=== PATIENT | female | born 1965 | race Two or more races ===

== ENCOUNTER 2019-11-11 23:35 | Inpatient (IN) | payer MEDICAID, OTHER ==
[~2019-11-11] VITALS: Ht 160 cm; Wt 72.1 kg
[2019-11-12 00:16] LABS: Basophils # (auto) 0 10 ^3/uL (0-0.2); Basophils % (auto) 0.5 % (0.0-2.0); Eosinophils # (auto) 0.1 10 ^3/uL (0-0.8); Eosinophils % (auto) 2.1 % (0.0-7.0); Hematocrit 38.3 % (36.0-46.0); Hemoglobin 12.8 g/dL (12.2-16.2); Lymphocytes # (auto) 1.5 10 ^3/uL (0.4-5.4); Lymphocytes % (auto) 43.6 % (10.0-50.0); Mean Corpuscular Hemoglobin 30.5 pg (28.0-32.0); Mean Corpuscular Hgb Conc. 33.4 g/dL (32.0-36.0); Mean Corpuscular Volume 91.3 fL (80.0-100.0); Monocytes # (auto) 0.2 10 ^3/uL (0-1.3); Neutrophils # (auto) 1.6 10 ^3/uL (1.6-8.6); Neutrophils % (auto) 47.8 % (37.0-80.0); Nucleated Red Blood Cells % 0.1 %; Platelet Count (auto) 229 10^3/uL (140-450); Red Blood Cells 4.19 10^6/uL (4.0-5.20); Red Cell Distribution Width 13.6 % (11.8-14.3); White Blood Cell 3.4 10^3/uL (4.4-10.8)
[2019-11-12 00:32] LABS: Albumin 3.8 g/dL (3.4-5.0); Calcium 8.2 mg/dL (8.5-10.1); Potassium 3.3 mmol/L (3.5-5.1)
[2019-11-12 00:35] LABS: BUN/Creatinine Ratio 17.6
[2019-11-12 00:40] LABS: Bilirubin, Total 0.3 mg/dL (0.2-1.0); Total Protein 7.2 g/dL (6.4-8.2)
[2019-11-12 03:52] LABS: INR 1.03 (0.9-1.15); Partial Thromboplastin Time 27.3 sec (23.0-31.2)
[2019-11-12] MEDS ORDERED: ONDANSETRON HCL 4 MG/2 ML VIAL IV ONE (05:00)
[2019-11-12] MEDS ORDERED: MORPHINE SULFATE 4 MG/ML SYR/VIAL IV ONE (05:00)
[2019-11-12] MEDS ORDERED: TEMAZEPAM 15 MG CAP PO PRN (06:00)
[2019-11-12] MEDS ORDERED: ONDANSETRON HCL 4 MG/2 ML VIAL IV PRN (06:00)
[2019-11-12] MEDS ORDERED: ACETAMINOPHEN 325 MG TAB PO PRN (06:00)
[2019-11-12] MEDS ORDERED: MORPHINE SULF INJ 2 MG/ML SYRINGE 1ML IV PRN (06:00)
[2019-11-12] MEDS ORDERED: cloNIDine HCL 0.1 MG TAB PO PRN (06:00)
[2019-11-12] MEDS ORDERED: NITROGLYCERIN 0.4 MG SL TAB SL PRN (06:00)
--- NOTE | 2019-11-12 08:30 | NUR ---
Patient arrived, patient on tele monitor HR is sinus Shakir 48BPM, patient is asymptomatic, patient alert and oriented at this time x4, patient stated only history is HTN and IBS. Patient vitals WNL at this time (see vitals documentation), patient made comfortable. Patient has no c/o chest pain at this time.
--- NOTE | 2019-11-12 08:40 | NUR ---
no password, per patient she does not want a password. phone calls transferred to room only.
[2019-11-12 09:00] VITALS: BP 133/62
[2019-11-12] MEDS ORDERED: LISI-648 PO (09:21)
[2019-11-12] MEDS: ASPirin 81 mg TAB PO SCH (09:52)
[2019-11-12] MEDS: ENOXAPARIN SOD 40 MG/0.4 ML SYRINGE SC SCH (09:53)
[2019-11-12] MEDS: FAMOTIDINE 20 MG TAB PO SCH ×2 (09:53→21:33)
[2019-11-12] MEDS: LISINOPRIL 10 MG TAB PO SCH (09:53)
[2019-11-12 13:00] VITALS: BP 100/51
[2019-11-12 17:00] VITALS: BP 93/53
--- NOTE | 2019-11-12 17:23 | NUR ---
Patient reports headache, diaphoresis which happens intermittently, she stated she already told the ER doctor and the doctor knows, it happens suddenly then goes away. Happens a few times a day.
[2019-11-12] MEDS ORDERED: DICY20TA PO (17:25)
[2019-11-12] MEDS ORDERED: POLY33504 PO (17:25)
--- NOTE | 2019-11-12 17:27 | NUR ---
patient reported home meds. states her GI doctor said she has to take everyday. documented and resumed.
[2019-11-12] MEDS: POLYETHYLENE GLYCOL 17 GM PWDR PO SCH (17:53)
[2019-11-12] MEDS: DICYCLOMINE HCL 10 MG CAP PO SCH ×2 (17:53→21:33)
[2019-11-12 19:51] LABS: BUN/Creatinine Ratio 14.6; Calcium 8.1 mg/dL (8.5-10.1)
[2019-11-12 19:57] LABS: Basophils # (auto) 0 10 ^3/uL (0-0.2); Basophils % (auto) 0.4 % (0.0-2.0); Eosinophils # (auto) 0.1 10 ^3/uL (0-0.8); Eosinophils % (auto) 1.5 % (0.0-7.0); Hematocrit 38.5 % (36.0-46.0); Hemoglobin 12.8 g/dL (12.2-16.2); Lymphocytes # (auto) 1.3 10 ^3/uL (0.4-5.4); Mean Corpuscular Hemoglobin 30.5 pg (28.0-32.0); Mean Corpuscular Hgb Conc. 33.2 g/dL (32.0-36.0); Mean Corpuscular Volume 91.9 fL (80.0-100.0); Monocytes # (auto) 0.3 10 ^3/uL (0-1.3); Monocytes % (auto) 8.2 % (0.0-12.0); Neutrophils # (auto) 2.2 10 ^3/uL (1.6-8.6); Neutrophils % (auto) 56.9 % (37.0-80.0); Platelet Count (auto) 223 10^3/uL (140-450); Red Blood Cells 4.19 10^6/uL (4.0-5.20); Red Cell Distribution Width 13.5 % (11.8-14.3); White Blood Cell 3.9 10^3/uL (4.4-10.8)
--- NOTE | 2019-11-12 20:20 | NUR ---
Patient is Jehovahs witness. Pt brought in Advanced directive outlining her wish to not receive blood. Copies made and placed in chart.
[2019-11-12] MEDS: ATORVASTATIN 20 MG TAB PO SCH (21:33)
[2019-11-12 22:00] VITALS: BP 98/41
[2019-11-13 05:00] VITALS: BP 101/57
[2019-11-13] MEDS: DICYCLOMINE HCL 10 MG CAP PO SCH ×4 (05:30→22:22)
[2019-11-13 07:09] LABS: Basophils # (auto) 0 10 ^3/uL (0-0.2); Basophils % (auto) 0.8 % (0.0-2.0); Eosinophils # (auto) 0.1 10 ^3/uL (0-0.8); Eosinophils % (auto) 1.6 % (0.0-7.0); Hematocrit 42.9 % (36.0-46.0); Hemoglobin 14.1 g/dL (12.2-16.2); Lymphocytes # (auto) 1.2 10 ^3/uL (0.4-5.4); Lymphocytes % (auto) 34.2 % (10.0-50.0); Mean Corpuscular Hemoglobin 30.6 pg (28.0-32.0); Mean Corpuscular Hgb Conc. 32.9 g/dL (32.0-36.0); Mean Corpuscular Volume 93.2 fL (80.0-100.0); Monocytes # (auto) 0.2 10 ^3/uL (0-1.3); Monocytes % (auto) 6.4 % (0.0-12.0); Nucleated Red Blood Cells % 0.1 %; Platelet Count (auto) 232 10^3/uL (140-450); Red Blood Cells 4.61 10^6/uL (4.0-5.20); Red Cell Distribution Width 13.3 % (11.8-14.3); White Blood Cell 3.5 10^3/uL (4.4-10.8)
--- NOTE | 2019-11-13 07:30 | NUR ---
Opening Shift Note Assumed patient care from NOC RN. Patient currently sitting up in bed, no signs of distress at this time, respirations even and unlabored. Safety precautions in place, call light within reach, will continue to monitor.
[2019-11-13 07:31] LABS: BUN/Creatinine Ratio 18.2; Calcium 8.5 mg/dL (8.5-10.1)
[2019-11-13 09:00] VITALS: BP 102/63
--- NOTE | 2019-11-13 09:30 | NUR ---
at Bedside Dr. James at bedside discussing plan of care with patient. Per MD, page cardio again for possible discharge tomorrow.
[2019-11-13] MEDS: LISINOPRIL 10 MG TAB PO SCH ×2 (10:00→14:03)
[2019-11-13] MEDS: ASPirin 81 mg TAB PO SCH (10:09)
[2019-11-13] MEDS: FAMOTIDINE 20 MG TAB PO SCH ×2 (10:09→22:23)
[2019-11-13] MEDS: POLYETHYLENE GLYCOL 17 GM PWDR PO SCH (10:10)
[2019-11-13] MEDS: ENOXAPARIN SOD 40 MG/0.4 ML SYRINGE SC SCH (10:10)
--- NOTE | 2019-11-13 10:15 | NUR ---
Recalled Cardio Consult Cardiology consult recalled per Carmelina, community health advisor.
--- NOTE | 2019-11-13 12:12 | NUR ---
at Bedside Dr. Brown at bedside discussing plan of care with patient. Per MD, patient to follow up with cardiology as outpatient on discharge.
[2019-11-13 13:00] VITALS: BP 113/65
--- NOTE | 2019-11-13 14:40 | NUR ---
MD Called Received return call from Dr. James. MD notified of patient complaint of chest pain and 12 lead EKG results as well as decreased pain after nitroglycerin administration, MD also aware of patient been seen by Dr. Brown. No new orders at this time.
[2019-11-13 17:00] VITALS: BP 116/51
--- NOTE | 2019-11-13 19:30 | NUR ---
Opening shift note Assumed care of patient from day RNNiyah. Patient resting with eyes closed, respirations even and non-labored with no s/s of distress. Wrote POC on whiteboard, will discuss with patient upon waking. Bed in lowest locked position with 2 side rails up, call light within reach. Will continue to monitor Q1hr and PRN.
[2019-11-13] MEDS: ATORVASTATIN 20 MG TAB PO SCH (22:23)
[2019-11-13 23:06] VITALS: BP 100/32
[2019-11-14 05:21] VITALS: BP 114/45
[2019-11-14 06:12] LABS: Basophils # (auto) 0 10 ^3/uL (0-0.2); Basophils % (auto) 0.5 % (0.0-2.0); Eosinophils # (auto) 0 10 ^3/uL (0-0.8); Hematocrit 39.9 % (36.0-46.0); Hemoglobin 13.1 g/dL (12.2-16.2); Lymphocytes # (auto) 1.3 10 ^3/uL (0.4-5.4); Lymphocytes % (auto) 32.8 % (10.0-50.0); Mean Corpuscular Hemoglobin 30.3 pg (28.0-32.0); Mean Corpuscular Hgb Conc. 32.9 g/dL (32.0-36.0); Mean Corpuscular Volume 92.2 fL (80.0-100.0); Monocytes # (auto) 0.2 10 ^3/uL (0-1.3); Monocytes % (auto) 4.9 % (0.0-12.0); Neutrophils # (auto) 2.4 10 ^3/uL (1.6-8.6); Neutrophils % (auto) 60.8 % (37.0-80.0); Nucleated Red Blood Cells % 0.2 %; Platelet Count (auto) 224 10^3/uL (140-450); Red Blood Cells 4.32 10^6/uL (4.0-5.20); Red Cell Distribution Width 13.1 % (11.8-14.3); White Blood Cell 3.9 10^3/uL (4.4-10.8)
[2019-11-14] MEDS: DICYCLOMINE HCL 10 MG CAP PO SCH (06:37)
[2019-11-14 06:45] LABS: Potassium 4.3 mmol/L (3.5-5.1)
[2019-11-14 06:48] LABS: BUN/Creatinine Ratio 18.8; Calcium 8.6 mg/dL (8.5-10.1)
--- NOTE | 2019-11-14 07:30 | NUR ---
Opening Shift Note Assumed patient care from NOC RN, Mechelle. Patient currently sitting up in bed at this time, no signs of distress, respirations even and unlabored. Safety precautions in place, call light within reach, patient encouraged to call PRN, will continue to monitor.
[2019-11-14 08:00] VITALS: BP 111/59
--- NOTE | 2019-11-14 08:57 | NUR ---
Dizziness Patient reports episode of "light headedness" and feelings of fatigue. Patient states she feels slightly better but she feels nervous at this time. Orthostatic Vitals obtained: Supine: HR 55, BP 134/74, SpO2 100%, RR 18 on room air. Sitting: HR 58, BP 133/71, SpO2 100%, RR 20 on room air, states some mild light headedness but states "it went away fast" Standing: HR 58, BP 134/70, SpO2 100%, RR 20 on Room air. No signs of distress, denies chest pain at this time. Safety precautions in place, call light within reach, will continue to monitor.
[2019-11-14] MEDS: LISINOPRIL 10 MG TAB PO SCH (09:35)
[2019-11-14] MEDS: FAMOTIDINE 20 MG TAB PO SCH (09:35)
[2019-11-14] MEDS: ASPirin 81 mg TAB PO SCH (09:35)
[2019-11-14] MEDS: POLYETHYLENE GLYCOL 17 GM PWDR PO SCH (09:36)
[2019-11-14] MEDS: ENOXAPARIN SOD 40 MG/0.4 ML SYRINGE SC SCH (09:36)
[2019-11-14] MEDS ORDERED: ASPI81CH43 PO (10:11)
[2019-11-14] MEDS ORDERED: ATOR20TA50 PO (10:11)
--- NOTE | 2019-11-14 10:30 | NUR ---
at Station Dr. James at station, patient to be discharged today, follow up with PCP and cardiology in 2 weeks.
[2019-11-14 10:58] VITALS: BP 134/70
[2019-11-14 12:00] VITALS: BP 114/57
--- NOTE | 2019-11-14 13:01 | NUR ---
Discharge Packet Patient provided with additional education materials from Clinical Diet Manual. Patient including Calorie Controlled Diets, Modifications for GI Disorders, and Fat Controlled Diets. Patient verbalized understanding and stated "this will help me a lot."
--- NOTE | 2019-11-14 13:13 | NUR ---
Discharge Discharge instructions given as ordered. Encourage to follow up with PMD as instructed. All questions and concerns addressed. Patient verbalized understanding. Medication reconciliation form completed and copy given to patient. IV removed with catheter intact, pressure dressing applied. Telemetry unit returned to ICU. Patient ambulated to vehicle with all personal belongings, accompanied by staff. No distress noted at time of departure. Respirations even and unlabored, denies chest pain, shortness of breath, and dizziness at this time.
== END 2019-11-14 13:13 | disposition home or self-care (01) | DRG 190 ==
LOC: EDBD 23:35 → ER 23:41 → TELE 23:42 → TELE-WESTW 11-12 08:21
PROVIDERS: ADMIT Nurse Practitioner; ATTEND Internal Medicine Pulmonary Disease
DX: I21.4 Non-ST elevation (NSTEMI) myocardial infarction (principal); I10 Essential (primary) hypertension; I25.2 Old myocardial infarction
CPT/HCPCS: 36415; 71045; 80048; 80053; 84484; 85025; 85379; 85610; 85730; 93005; 93306; G0378; J2405

== ENCOUNTER 2019-11-17 21:30 | Emergency (ER) | payer MEDICAID ==
[~2019-11-17] VITALS: Ht 170.2 cm; Wt 72.6 kg
[~2019-11-17 21:30] MED LIST: ASPI81CH43 PO; ATOR20TA50 PO; DICY20TA PO; LISI-648 PO; POLY33504 PO
[2019-11-17 21:46] VITALS: BP 140/84
== END 2019-11-17 23:31 | disposition left against medical advice (07) ==
LOC: ER 21:30 → EDSEX 21:30 → EDBD 21:30 → ER 22:20
DX: R07.89 Other chest pain (principal); Z53.21 Procedure and treatment not carried out due to patient leaving prior to being seen by health care provider
CPT/HCPCS: 93005

== ENCOUNTER 2024-10-14 03:34 | Inpatient (IN) | payer MEDICAID ==
[2024-10-14] VITALS (10 sets, daily range): BP systolic 93–156; BP diastolic 45–77; PULSE 41–61; RESP 13–18; TEMP 96.9–98.3; O2SAT 97–100
[~2024-10-14] VITALS: Ht 160 cm; Wt 91.0 kg
[~2024-10-14 03:34] MED LIST changes: -LISI-648 PO; +LISI10TA34 PO
--- NOTE | 2024-10-14 04:37 | ED.PDOC ---
HPI Comments 59 year old female presents to the ED with a chief complaint of chest pain onset today (10/14/24). Patient states she was sleeping, woke up due to chest discomfort, felt like "heart was going to stop" and is skipping a beat. She is also experiencing shortness of breath, dizziness, chest discomfort, headache, bilateral leg cramping, experienced diarrhea 2 days ago. Patient experienced similar symptoms in 2020, had a cardiac catheter, was negative. Patient was also hospitalized at [facility] due to elevated Troponin levels. PMHx systolic dysfunction, HTN, thyroid cancer. Denies nausea, vomiting, diarrhea, abdominal pain, fever, chills, blurry vision, numbness/tingling, hematemesis, melena, headache. No other symptoms or modifying factors present at this time. Chief Complaint: Chest Pain Time Seen by MD: 03:50 Primary Care Provider: ARLENE Reviewed Notes: Medications, Allergies Allergies: Coded Allergies: NO KNOWN ALLERGIES (Unverified , 11/12/19) Home Meds Active Scripts Atorvastatin Calcium (ATORVASTATIN CALCIUM) 20 Mg Tab, 10 MG PO HS for 30 Days, #15 TAB Prov:DOUGLAS SNOW MD 11/14/19 Aspirin (Asa) 81 Mg Ch, 162 MG PO DAILY for 30 Days, #30 TAB.CHEW Prov:DOUGLAS SNOW MD 11/14/19 Reported Medications Polyethylene Glycol (MIRALAX 17GM PWD) 17 Gm Pw, 17 GRAMS PO DAILY, #527 GRAMS 11/12/19 Dicyclomine Hcl (Dicyclomine Hcl) 20 Mg Tab, 1 TAB PO QID for ibs 11/12/19 Lisinopril (Lisinopril) 10 Mg Tab, 10 MG PO DAILY for 30 Days, MG 11/12/19 Information Source: Patient Mode of Arrival: Ambulatory Severity: Moderate Timing: Hours Duration: Since onset Prehospital treatment: None Location: Chest (L) Radiation: No Radiation Quality: Sharp Onset: While Asleep Cardiac Risk Factors: HTN History of: None Associated Signs and Symptoms: SOB Vital Signs Vital Signs Date Time Temp Pulse Resp B/P (MAP) Pulse Ox O2 Delivery O2 Flow Rate FiO2 10/14/24 03:40 78 10/14/24 03:34 97.8 18 148/76 (100) 98 97.8 Physical Exam PHYSICAL EXAM: General: Awake, alert and oriented. No acute distress. Skin: Skin in warm, dry and intact. Appropriate color for ethnicity. HEENT: The head is normocephalic and atraumatic. Conjunctivae are clear without exudates or hemorrhage. Sclera is non-icteric. EOM are intact. No signs of nystagmus. Eyelids are normal in appearance without swelling or lesions. Oral mucosa is pink and moist Neck: The neck is supple with normal range of motion. No JVD. Cardiac: Heart rate and rhythm are normal. No murmurs, gallops, or rubs are auscultated. Respiratory: No signs of respiratory distress. Lung sounds are clear in all lobes bilaterally without rales, rhonchi, or wheezes. Abdominal: Abdomen is soft, non-tender without distention, guarding or rigidity. Bowel sounds are present and normoactive in all four quadrants. Extremities: Upper and lower extremities are atraumatic in appearance without deformity or edema. Neurological: The patient is awake, alert and oriented to person, place, and time with normal speech. Speech is clear. There is no facial asymmetry. Psychiatric: Appropriate mood and affect. Good judgement and insight. Review of Systems: REVIEW OF SYSTEMS: General: No fever, no chills, or fatigue HEENT: No sore throat, no earache, no congestion, no neck pain. Cardiac: No chest pain. No palpitations. Lungs: No shortness of breath, no cough. GI: No nausea, no vomiting, no diarrhea, no constipation, no abdominal pain : No dysuria, frequency, or urgency. No hematuria. Musculoskeletal: No joint pain , no joint swelling, no extremity edema. Skin: No rash, no itching. 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 Was a procedure done?: No CP Differential Dx Differential Diagnosis: A-fib, A-Flutter, Angina, Atrial Dysrhythmia, AV Block 1st Degree, AV Block 2nd Degree, AV Block 3rd Degree, Electrolyte Disorder, Heart Failure, Hyperthyroidism, Hyperventilation, [place], PVC's, Sinus Tachycardia, Other X-Ray, Labs, Meds, VS Vital Signs Date Time Temp Pulse Resp B/P (MAP) Pulse Ox O2 Delivery O2 Flow Rate FiO2 10/14/24 03:40 78 10/14/24 03:34 97.8 73 18 148/76 (100) 98 97.8 Lab Test 10/14/24 03:58 Range/Units White Blood Count 4.0 L 4.4-10.8 10^3/uL Red Blood Count 4.37 4.0-5.20 10^6/uL Hemoglobin 13.2 12.2-16.2 g/dL Hematocrit 39.3 36.0-46.0 % Mean Corpuscular Volume 89.8 80.0-100.0 fL Mean Corpuscular Hemoglobin 30.2 28.0-32.0 pg Mean Corpuscular Hemoglobin Concent 33.6 32.0-36.0 g/dL Red Cell Distribution Width 13.3 11.8-14.3 % Platelet Count 269 140-450 10^3/uL Mean Platelet Volume 7.9 6.9-10.8 fL Neutrophils (%) (Auto) 49.0 37.0-80.0 % Lymphocytes (%) (Auto) 40.4 10.0-50.0 % Monocytes (%) (Auto) 6.9 0.0-12.0 % Eosinophils (%) (Auto) 3.2 0.0-7.0 % Basophils (%) (Auto) 0.5 0.0-2.0 % Neutrophils # (Auto) 2.0 1.6-8.6 10 ^3/uL Lymphocytes # (Auto) 1.6 0.4-5.4 10 ^3/uL Monocytes # (Auto) 0.3 0-1.3 10 ^3/uL Eosinophils # (Auto) 0.1 0-0.8 10 ^3/uL Basophils # (Auto) 0 0-0.2 10 ^3/uL Nucleated Red Blood Cells 0.1 % Sodium Level 140 136-145 mmol/L Potassium Level 3.9 3.5-5.1 mmol/L Chloride Level 106 98-107 mmol/L Carbon Dioxide Level 26 20-31 mmol/L Anion Gap 8 5-15 Blood Urea Nitrogen 15 9-23 mg/dL Creatinine 0.96 0.550-1.02 mg/dL Glomerular Filtration Rate Calc 68 >90 mL/min BUN/Creatinine Ratio 15.6 10.0-20.0 Serum Glucose 116 H 74-106 mg/dL Calcium Level 9.1 8.7-10.4 mg/dL Troponin I High Sensitivity 46 *H </=34 ng/L B-Type Natriuretic Peptide 66.22 0-100 pg/mL Thyroid Stimulating Hormone (TSH) 1.29 0.55-4.78 uIU/mL Time of 1ST Reevaluation: 04:20 Reevaluation 1ST: Unchanged Patient Education/Counseling: Need For Follow Up Family Education/Counseling: No Family Present SEPSIS Sepsis Screen Date sepsis recognized/suspect: Oct 14, 2024 Time Sepsis recognized/suspect: 333 Recent Procedure: No On Antibiotic Therapy: No Respiratory Rate >20: No Heart Rate >90: No Temp<36 C (96.8 F) or >38.3 C: No SBP <90 or MAP <65 mmHG: No New Acute Mental Status Change: No Is the patient on CPAP, BIPAP,: No Physician Orders Electrocardigram (10/14/24 03:44) Electrocardigram (10/14/24 04:44) Electrocardigram (10/14/24 06:44) Chest Xray 1 View (10/14/24 04:25) Vital Signs Q1HR (10/14/24 04:25) Troponin-I Hs (10/14/24 05:25) Troponin-I Hs (10/14/24 07:25) Vital Signs Date Time Temp Pulse Resp B/P (MAP) Pulse Ox O2 Delivery O2 Flow Rate FiO2 10/14/24 03:40 78 10/14/24 03:34 97.8 73 18 148/76 (100) 98 97.8 Laboratory Tests Test 10/14/24 03:58 White Blood Count 4.0 10^3/uL (4.4-10.8) L Departure 1 Departure Time of Disposition: 05:16 Impression: Primary Impression: Palpitations Additional Impression: Elevated troponin Disposition: ADMITTED INPATIENT Comments Patient admitted to hospitalist service for further treatment, evaluation and monitoring. Extensive evaluation was performed in attempt to identify or rule out: (See differential diagnosis section) The following tests were ordered, and results were reviewed by me and discussed with patient: (See diagnostic results section) The following test were independently interpreted by me: EKG, CXR I reviewed and agreed with the following test results read by other providers: N/A I reviewed the following notes from the pt's past medical encounters: N/A Decision regarding hospitalization or escalation of hospital level of care: Risk and benefits of admission for further treatment of patient's condition was considered. Due to patient's current clinical condition, high risk of decline and poor outcome if discharged and need for further inpatient management and monitoring, patient will be admitted to the hospital. Critical Care Note Critical Care Time?: No Stability Stability form required: No I personally scribed for RICARDO GTZ MD ([email or web address]) on 10/14/24 at 04:37. Electronically submitted by Terrie Valle ([email or web address]). RICARDO GTZ MD Oct 14, 2024 04:37
[2024-10-14 04:40] LABS: Hematocrit 39.3 % (36.0-46.0); Hemoglobin 13.2 g/dL (12.2-16.2); Mean Corpuscular Hemoglobin 30.2 pg (28.0-32.0); Mean Corpuscular Volume 89.8 fL (80.0-100.0); Nucleated Red Blood Cells % 0.1 %
[2024-10-14 04:42] LABS: Chloride 106 mmol/L (98-107); Potassium 3.9 mmol/L (3.5-5.1); Sodium 140 mmol/L (136-145)
[2024-10-14 04:43] LABS: Anion Gap 8 (5-15); Calcium 9.1 mg/dL (8.7-10.4); Carbon Dioxide 26 mmol/L (20-31)
[2024-10-14 04:48] LABS: BUN/Creatinine Ratio 15.6 (10.0-20.0); Blood Urea Nitrogen 15 mg/dL (9-23)
[2024-10-14 04:55] LABS: Glucose 116 mg/dL (74-106)
--- NOTE | 2024-10-14 05:20 | DVH ---
CHEST RADIOGRAPH Indication: cp Technique: Single frontal view of the chest was obtained COMPARISON: None FINDINGS: Lines and Tubes: None Lungs: Clear Pleura: No effusion. No pneumothorax. Cardiomediastinal contours: Unremarkable Bones: Unremarkable IMPRESSION: 1. No acute disease.
--- NOTE | 2024-10-14 08:08 | DVHHP2 ---
History of Present Illness Reason for Visit: Palpitations History of Present Illness Laurie Call is a 59-year-old female with past medical history of thyroid cancer status post thyroidectomy, hypertension, ID, systolic dysfunction and left wrist surgery who presents to the ED with palpitations x 2 days. Patient reports that she has been having ongoing palpitations for the past several years but is started to get worse yesterday. She reports that she thought her heart was going to stop. She states that she 3 years ago she saw Dr. Brown also had an angio done. She states 7 months ago she was at [facility] and had a stress test and was told that everything was good. She reports that she is taking all of her medications. She denies any recent sick contacts, recent travels, recent ingestion of spoiled food, recent trauma or injury, chest pain, shortness of breath, fever, chills, lightheadedness, weakness, dizziness, abdominal pain, nausea, vomiting, or diarrhea. Cardiovascular: HTN, ID Past Medical History Thyroid cancer Systolic dysfunction Past Surgical History: Other (Thyroidectomy and left wrist surgery) Family History: None Smoke: No ALCOHOL: none Drugs: None Lives: Alone Domestic Violence: Neg Review of Systems Cardiovascular: Palpitations Allergies: Coded Allergies: NO KNOWN ALLERGIES (Unverified , 11/12/19) Exam Vital Signs Vital Signs Date Time Temp Pulse Resp B/P (MAP) Pulse Ox O2 Delivery O2 Flow Rate FiO2 10/14/24 06:05 61 18 97 Room Air* 0 21 10/14/24 06:05 98.1 161/68 (99) 98.1 General Appearance: Alert, Oriented X3, Cooperative, No acute distress HEENT: Atraumatic, PERRLA, EOMI, Mucous membr. moist/pink Respiratory: Clear to auscultation, Normal air movement Cardiovascular: Normal S1, Normal S2 Abdominal: Normal bowel sounds, Soft Extremities: No clubbing, No cyanosis, No edema, Normal pulses, No tenderness/swelling Skin: No significant lesion Neuro: Normal gait, Normal speech, Strength at 5/5 X4 ext, Normal tone, Sensation intact Psych/Mental Status: Mental status NL, Mood NL Labs/Xrays Labs Test 10/14/24 05:46 10/14/24 03:58 Range/Units Troponin I High Sensitivity 50 *H </=34 ng/L White Blood Count 4.0 L 4.4-10.8 10^3/uL Red Blood Count 4.37 4.0-5.20 10^6/uL Hemoglobin 13.2 12.2-16.2 g/dL Hematocrit 39.3 36.0-46.0 % Mean Corpuscular Volume 89.8 80.0-100.0 fL Mean Corpuscular Hemoglobin 30.2 28.0-32.0 pg Mean Corpuscular Hemoglobin Concent 33.6 32.0-36.0 g/dL Red Cell Distribution Width 13.3 11.8-14.3 % Platelet Count 269 140-450 10^3/uL Mean Platelet Volume 7.9 6.9-10.8 fL Neutrophils (%) (Auto) 49.0 37.0-80.0 % Lymphocytes (%) (Auto) 40.4 10.0-50.0 % Monocytes (%) (Auto) 6.9 0.0-12.0 % Eosinophils (%) (Auto) 3.2 0.0-7.0 % Basophils (%) (Auto) 0.5 0.0-2.0 % Neutrophils # (Auto) 2.0 1.6-8.6 10 ^3/uL Lymphocytes # (Auto) 1.6 0.4-5.4 10 ^3/uL Monocytes # (Auto) 0.3 0-1.3 10 ^3/uL Eosinophils # (Auto) 0.1 0-0.8 10 ^3/uL Basophils # (Auto) 0 0-0.2 10 ^3/uL Nucleated Red Blood Cells 0.1 % Sodium Level 140 136-145 mmol/L Potassium Level 3.9 3.5-5.1 mmol/L Chloride Level 106 98-107 mmol/L Carbon Dioxide Level 26 20-31 mmol/L Anion Gap 8 5-15 Blood Urea Nitrogen 15 9-23 mg/dL Creatinine 0.96 0.550-1.02 mg/dL Glomerular Filtration Rate Calc 68 >90 mL/min BUN/Creatinine Ratio 15.6 10.0-20.0 Serum Glucose 116 H 74-106 mg/dL Calcium Level 9.1 8.7-10.4 mg/dL B-Type Natriuretic Peptide 66.22 0-100 pg/mL Thyroid Stimulating Hormone (TSH) 1.29 0.55-4.78 uIU/mL CHEST RADIOGRAPH Indication: cp Technique: Single frontal view of the chest was obtained COMPARISON: None FINDINGS: Lines and Tubes: None Lungs: Clear Pleura: No effusion. No pneumothorax. Cardiomediastinal contours: Unremarkable Bones: Unremarkable IMPRESSION: 1. No acute disease. SEPSIS Sepsis Screen Date sepsis recognized/suspect: Oct 14, 2024 Time Sepsis recognized/suspect: 607 Recent Procedure: No On Antibiotic Therapy: No Respiratory Rate >20: No Heart Rate >90: No Temp<36 C (96.8 F) or >38.3 C: No SBP <90 or MAP <65 mmHG: No New Acute Mental Status Change: No Is the patient on CPAP, BIPAP,: No Physician Orders Electrocardigram (10/14/24 03:44) Electrocardigram (10/14/24 04:44) Electrocardigram (10/14/24 06:44) Chest Xray 1 View (10/14/24 04:25) Vital Signs Q1HR (10/14/24 04:25) Troponin-I Hs (10/14/24 07:25) Admit (10/14/24 08:01) Allergies (10/14/24 08:01) Code Status (10/14/24 08:01) Ondansetron Hcl (Zofran) (10/14/24 08:15) Complete Blood Count (10/15/24 04:00) Comprehensive Metabolic Panel (10/15/24 04:00) Cardiac Diet-2gna,Lofat,Lochol (10/14/24 Breakfast) Acetaminophen Tablet (Tylenol Tablet) (10/14/24 08:15) Sequential Compression Device (10/14/24 ) Nitroglycerin Sublingual (Ntrostat Subli (10/14/24 08:15) Morphine Sulfate Injection (10/14/24 08:15) Stat Ekg For Chest Pain (10/14/24 08:01) Notify Of Changes From Base (10/14/24 08:01) Floor Covering Printer For 24 Hours (10/14/24 08:01) Emergency Dysrhythmia Protocol (10/14/24 08:01) Rhythm Strips Once Every Shift (10/14/24 08:01) Oxygen By Nasal Cannula (10/14/24 08:01) * Cardiology Consult (10/14/24 08:02) Hemoglobin A1c (10/14/24 08:02) Thyroid Stimulating Hormone (10/14/24 08:02) Lipid Panel (10/14/24 08:02) Urinalysis (10/14/24 08:02) Drug Screen (10/14/24 08:02) Echo 2d Mode Cardiac Dop (10/14/24 08:02) Free T4 (Free Thyroxine) (10/14/24 08:02) Vital Signs Date Time Temp Pulse Resp B/P (MAP) Pulse Ox O2 Delivery O2 Flow Rate FiO2 10/14/24 06:05 61 18 97 Room Air* 0 21 10/14/24 06:05 98.1 61 18 161/68 (99) 97 98.1 10/14/24 03:40 78 10/14/24 03:34 97.8 73 18 148/76 (100) 98 97.8 Laboratory Tests Test 10/14/24 03:58 White Blood Count 4.0 10^3/uL (4.4-10.8) L Medications Medications Dose Ordered Sig/Ngozi Route Start Time Stop Time Status Last Admin Dose Admin Aspirin 324 mg ONCE ONCE PO 10/14/24 04:30 10/14/24 04:31 DC 10/14/24 04:30 324 MG Assessment/Plan Assessment/Plan Assessment Palpitations Obesity History of hypertension History of thyroid cancer status post thyroidectomy History of ID History of systolic dysfunction History of left wrist surgery Plan Admit to tele Aspirin + statin TSH Troponin pink to 50 Chest x-ray noted BNP EKG UA UDS Last echo on 11/12/2019 EF 60% Echo ordered Hemoglobin A1c Free T4 TSH Lipid panel Diet Home medications reconciled DVT prophylaxis-not indicated patient ambulating PUD prophylaxis-not indicated no history of GERD or GI bleed Discussed plan of care with patient and nurse Cardiology consult Counseled patient on lifestyle modifications, diet, and exercise [id number] Preventive counseling healthy eating habits, physical activity, and regular checkups Plan discussed with: Patient My Orders Orders - ADRIANA PONCE Procedure Category Date Status Time Admit ADMIT 10/14/24 Transmitted 08:01 Allergies SWAPNIL 10/14/24 In Process 08:01 Code Status CODE 10/14/24 Transmitted 08:01 Ondansetron Hcl PHA 10/14/24 Logged (Emile) 08:15 Complete Blood Count LAB 10/15/24 Verified 04:00 Comprehensive LAB 10/15/24 Verified Metabolic Panel 04:00 Cardiac DIET 10/14/24 Transmitted Diet-2gna,Lofat,Lochol Breakfast Acetaminophen Tablet [facility] 10/14/24 Logged (Tylenol Tablet) 08:15 Sequential [facility] 10/14/24 In Process Compression Device Nitroglycerin [facility] 10/14/24 Logged Sublingual (Ntrostat 08:15 Morphine Sulfate [facility] 10/14/24 Logged Injection 08:15 Stat Ekg For Chest [facility] 10/14/24 In Process Pain 08:01 Notify Of Changes [facility] 10/14/24 In Process From Base 08:01 Floor Covering Printer For [facility] 10/14/24 In Process 24 Hours 08:01 Emergency Dysrhythmia [facility] 10/14/24 In Process Protocol 08:01 Rhythm Strips Once [facility] 10/14/24 In Process Every Shift 08:01 Oxygen By Nasal RT 10/14/24 Transmitted Cannula 08:01 * Cardiology Consult CONS 10/14/24 Verified 08:02 Hemoglobin A1c LAB 10/14/24 Verified 08:02 Thyroid Stimulating LAB 10/14/24 Verified Hormone 08:02 Lipid Panel LAB 10/14/24 Verified 08:02 Urinalysis LAB 10/14/24 Verified 08:02 Drug Screen LAB 10/14/24 Verified 08:02 Echo 2d Mode Cardiac US 10/14/24 Verified DOP 08:02 Free T4 (Free LAB 10/14/24 Verified Thyroxine) 08:02 Date of Service: Oct 14, 2024 Billing Provider: ADRIANA PONCE Common Visit Codes: [id number] INP/OBS CARE (HIGH) Secondary Visit Codes: [id number] COUNSELING IND ADRIANA PONCE Oct 14, 2024 08:08
[2024-10-14] MEDS ORDERED: MORPHINE SULFATE INJ 2 MG/ml SYRG IV PRN (08:15)
[2024-10-14] MEDS ORDERED: ONDANSETRON HCL 4 MG/2 ML VIAL IV PRN (08:15)
[2024-10-14] MEDS ORDERED: NITROGLYCERIN 0.4 MG SL TAB SL PRN (08:15)
[2024-10-14 08:22] LABS: Triglycerides 68 mg/dL (< 150)
[2024-10-14 08:24] LABS: Cholesterol 177 mg/dL (< 200); HDL Cholesterol 45 mg/dL (40-59)
[2024-10-14 09:41] LABS: Urine Protein, UAD Negative (Negative)
--- NOTE | 2024-10-14 09:53 | DVHINCON2 ---
Date Seen: Oct 14, 2024 Referring Physician MICHELLE Ardon Reason for Consultation Palpitations History of Present Illness This is a 59-year-old female patient who presents to the emergency room with chief complaint of palpitations. The patient reports that the palpitations began at approximately 3:00 a.m. this morning upon awakening. Associated symptoms include dizziness. She denies any chest pain or shortness of breath. Initial twelve lead electrocardiogram reveals normal sinus rhythm without any significant ST segment changes. Initial troponin level of 46ng/L with flat trend thereafter. Significant past medical history includes hypertension, dyslipidemia, thyroid cancer status post thyroidectomy, and obesity. The patient reports that she underwent a coronary angiogram in 2020 in which no catheter based intervention was deemed necessary. She also reports a recent nuclear stress test at [facility] [place] in January 2024, which was negative per patient. The patient does not currently see a striper spray gun in the outpatient setting. Past Medical History Past medical history reviewed. No other significant than mentioned above. Past Surgical History Thyroidectomy in 2019 Tubal ligation Family History: Diabetes mellitus Family History Family history reviewed. Social History Denies the use of tobacco, alcohol or illicit drugs. Allergies: Coded Allergies: NO KNOWN ALLERGIES (Unverified , 11/12/19) Home Meds Active Scripts Atorvastatin Calcium (ATORVASTATIN CALCIUM) 20 Mg Tab, 10 MG PO HS for 30 Days, #15 TAB Prov:DOUGLAS SNOW MD 11/14/19 Aspirin (Asa) 81 Mg Ch, 162 MG PO DAILY for 30 Days, #30 TAB.CHEW Prov:DOUGLAS SNOW MD 11/14/19 Reported Medications Polyethylene Glycol (MIRALAX 17GM PWD) 17 Gm Pw, 17 GRAMS PO DAILY, #527 GRAMS 11/12/19 Dicyclomine Hcl (Dicyclomine Hcl) 20 Mg Tab, 1 TAB PO QID for ibs 11/12/19 Lisinopril (Lisinopril) 10 Mg Tab, 10 MG PO DAILY for 30 Days, MG 11/12/19 Home Meds Home medications reviewed. Current Medications Current Medications Medications (Trade) Dose Ordered Sig/Ngozi Route PRN Reason Start Time Stop Time Status Last Admin Ondansetron HCl (Zofran) 4 mg Q4HP PRN IV NAUSEA / VOMITING 10/14/24 08:15 Acetaminophen (Tylenol Tablet) 650 mg Q6HP PRN PO PAIN SCALE 1-3 OR TEMP>100.4 7/17/25 08:15 Nitroglycerin (Ntrostat Sublingual) 0.4 mg Q5MINP PRN SL FOR CHEST PAIN 10/14/24 08:15 Morphine Sulfate 2 mg Q30M PRN IV FOR CHEST PAIN 10/14/24 08:15 Review of Systems Constitutional: No symptom reported Ears, Nose, & Throat: No symptom reported Eyes: No symptom reported Neurological: No symptoms reported Pulmonary/Respiratory: No symptoms reported Cardiovascular: Palpitations Gastrointestinal: No symptom reported Genitourinary: No symptom reported Musculoskeletal: No symptom reported Skin: No symptom reported Psychiatric: No symptom reported Endocrine: No symptom reported Hematologic/Lymphatic: No symptom reported Vital Signs Vital Signs Date Time Temp Pulse Resp B/P (MAP) Pulse Ox O2 Delivery O2 Flow Rate FiO2 10/14/24 08:10 51 13 97 Room Air* 0 21 10/14/24 08:09 98.0 128/68 (88) 98.0 Physical Exam General Appearance: Cooperative. Well-developed. Well-nourished. No acute distress. Pulmonary/Respiratory: Clear, bilateral breaths sounds. Cardiovascular/Chest: Regular rate and rhythm. Peripheral Pulses: 2+ Radial (R). 2+ Radial (L). 2+ Pedal (R). 2+ Pedal (L) Abdominal Exam: Normal bowel sounds. Ankle Exam: Negative ankle edema Lower extremities: Negative lower extremity edema Neuro/Mental Status: A/OX4, coherent. Thoughts/Psych: Normal thought pattern. Appropriate mood and affect. Good judgment and insight. Appearance: No acute distress. Skin Exam: Normal inspection. Normal color. Warm and dry. Labs/Diagnostic Data Labs Test 10/14/24 09:00 10/14/24 08:23 10/14/24 05:46 10/14/24 03:58 Range/Units Troponin I High Sensitivity 50 *H </=34 ng/L Triglycerides Level 68 < 150 mg/dL Cholesterol Level 177 < 200 mg/dL LDL Cholesterol 127 H < 100 mg/dL HDL Cholesterol 45 40-59 mg/dL Thyroid Stimulating Hormone (TSH) 0.90 0.55-4.78 uIU/mL White Blood Count 4.0 L 4.4-10.8 10^3/uL Red Blood Count 4.37 4.0-5.20 10^6/uL Hemoglobin 13.2 12.2-16.2 g/dL Hematocrit 39.3 36.0-46.0 % Mean Corpuscular Volume 89.8 80.0-100.0 fL Mean Corpuscular Hemoglobin 30.2 28.0-32.0 pg Mean Corpuscular Hemoglobin Concent 33.6 32.0-36.0 g/dL Red Cell Distribution Width 13.3 11.8-14.3 % Platelet Count 269 140-450 10^3/uL Mean Platelet Volume 7.9 6.9-10.8 fL Neutrophils (%) (Auto) 49.0 37.0-80.0 % Lymphocytes (%) (Auto) 40.4 10.0-50.0 % Monocytes (%) (Auto) 6.9 0.0-12.0 % Eosinophils (%) (Auto) 3.2 0.0-7.0 % Basophils (%) (Auto) 0.5 0.0-2.0 % Neutrophils # (Auto) 2.0 1.6-8.6 10 ^3/uL Lymphocytes # (Auto) 1.6 0.4-5.4 10 ^3/uL Monocytes # (Auto) 0.3 0-1.3 10 ^3/uL Eosinophils # (Auto) 0.1 0-0.8 10 ^3/uL Basophils # (Auto) 0 0-0.2 10 ^3/uL Nucleated Red Blood Cells 0.1 % Sodium Level 140 136-145 mmol/L Potassium Level 3.9 3.5-5.1 mmol/L Chloride Level 106 98-107 mmol/L Carbon Dioxide Level 26 20-31 mmol/L Anion Gap 8 5-15 Blood Urea Nitrogen 15 9-23 mg/dL Creatinine 0.96 0.550-1.02 mg/dL Glomerular Filtration Rate Calc 68 >90 mL/min BUN/Creatinine Ratio 15.6 10.0-20.0 Serum Glucose 116 H 74-106 mg/dL Hemoglobin A1c 5.4 <5.7 % A1C Calcium Level 9.1 8.7-10.4 mg/dL B-Type Natriuretic Peptide 66.22 0-100 pg/mL Assessment Palpitations, rule out cardiac arrhythmia Rule out structural heart disease Hypertensive urgency NSTEMI, type II secondary to above Dyslipidemia Thyroid cancer status post total thyroidectomy Obesity Plan/Recommendation We will continue with the following plan/recommendations (Dr. Mccallum): * Transthoracic echocardiogram to evaluate cardiac function * Aggressive BP control * Lipid-lowering agent * Monitor and replete electrolytes as needed * Continuous cardiac surveillance; notify cardiology team immediately for any ECG changes Further recommendations per clinical course and progression. Thank you for allowing us to care for this patient. Please call with any questions or concerns. Critical care time spent: 44 minutes This medical document was created using an electronic medical record system with voice recognition software and computerized dictation system. Although this document has been carefully reviewed, there might still be some phonetic and typographical errors. Occasional wrong-word or ``sound-alike substitutions may have occurred due to the inherent limitations of voice recognition software. These areas are purely typographical due to imperfections of the software programs and do not reflect any compromise in the patient's medical care. Please read the chart carefully and recognize, using context, where these substitutions have occurred. Plan discussed with: Patient NYHA Physical activity limitations: NA Date of Service: Oct 14, 2024 Billing Provider: GAL ANTHONY Cardiology Common Codes: 02152-[id number] INP/OBS CARE (High) Cardiology Consultation Codes: 19784-[id number] CONSULT <45MIN GAL ANTHONY Oct 14, 2024 09:53
--- NOTE | 2024-10-14 09:56 | ECG ---
[facility] Test Date: 2024-10-14 Test Time: 03:40:50 Pat Name: BARTOLO SINGH Department: ED Room: 0240T Gender: F Maintenance Carpenter: VANESA : 1965 Requested By: RICARDO GTZ Order Number: [id number] Reading MD: Jeremie Mccallum Measurements Intervals [place] Rate: 78 P: 43 [place]: 153 QRS: 10 QRSD: 78 T: 0 QT: 502 QTc: 572 Interpretive Statements Sinus rhythm Borderline repol abnrm, anterolateral leads Prolonged QT interval Electronically Signed On 10-20-2024 15:38:55 PDT by Jeremie Mccallum Please click the below link to view image of tracing.
--- NOTE | 2024-10-14 09:57 | ECG ---
[facility] Test Date: 2024-10-14 Test Time: 05:34:53 Pat Name: BARTOLO SINGH Department: ER Room: 0240T Gender: F Quarter Supervisor: KARINA : 1965 Requested By: RICARDO GTZ Order Number: [id number] Reading MD: Jeremie Mccallum Measurements Intervals [place] Rate: 56 P: 42 [place]: 147 QRS: 16 QRSD: 105 T: 32 QT: 430 QTc: 416 Interpretive Statements Sinus rhythm Borderline T abnormalities, anterior leads Electronically Signed On 10-20-2024 15:39:00 PDT by Jeremie Mccallum Please click the below link to view image of tracing.
[2024-10-14] MEDS: LISINOPRIL 5 MG TAB PO SCH (10:00)
[2024-10-14 10:03] LABS: Amphetamine Screen, Urine Neg (NEGATIVE); Barbiturate Scree,Urine Neg (NEGATIVE); Benzodiazephine Screen, Urine Neg (NEGATIVE); Cannabinoid Screen, Urine Neg (NEGATIVE); Cocaine Screen, Urine Neg (NEGATIVE); Opiate Scree,Urine Neg (NEGATIVE); Phencyclidine Screen, Urine Neg (NEGATIVE)
--- NOTE | 2024-10-14 10:39 | ECG ---
[facility] Test Date: 2024-10-14 Test Time: 10:39:20 Pat Name: BARTOLO SINGH Department: Emergency Room Room: 0240T Gender: F Evidence Custodian: NATTY : 1965 Requested By: RICARDO GTZ Order Number: [id number] Reading MD: Jeremie Mccallum Measurements Intervals [place] Rate: 51 P: 31 [place]: 152 QRS: 1 QRSD: 113 T: 8 QT: 458 QTc: 422 Interpretive Statements Sinus rhythm Incomplete left bundle branch block Probable left ventricular hypertrophy Electronically Signed On 10-20-2024 15:39:18 PDT by Jeremie Mccallum Please click the below link to view image of tracing.
[2024-10-14] MEDS ORDERED: LEVO-177 PO (11:18)
--- NOTE | 2024-10-14 11:28 | DVHPN2 ---
Subjective Decreasing chest discomfort and palpitations Reviewed: Care Plan, H&P, Labs, Medications, Previous Orders, Radiology, Other (Consultations) Changes from previous H/P or p: Changes Objective Vitals Vital Signs Date Time Temp Pulse Resp B/P (MAP) Pulse Ox O2 Delivery O2 Flow Rate FiO2 10/14/24 10:05 98.3 49 17 127/62 (83) 100 98.3 10/14/24 08:10 Room Air* 0 21 General Appearance: Alert, Oriented X3, Cooperative, No acute distress HEENT: Atraumatic Lungs: Clear to auscultation, Normal air movement Cardiovascular: Normal S1, Normal S2, Other (Bradycardic) Abdomen: Normal bowel sounds, Soft, No tenderness Extremities: No edema Neuro: Normal speech, Cranial nerves 3-12 NL Psych/Mental Status: Mental status NL, Mood NL Medications Current Medications Medications Dose Ordered Sig/Ngozi Route Start Time Stop Time Status Last Admin Dose Admin Ondansetron HCl 4 mg Q4HP PRN IV 10/14/24 08:15 Acetaminophen 650 mg Q6HP PRN PO 10/14/24 08:15 Nitroglycerin 0.4 mg Q5MINP PRN SL 10/14/24 08:15 Morphine Sulfate 2 mg Q30M PRN IV 10/14/24 08:15 Lisinopril 10 mg DAILY PO 10/14/24 10:00 Atorvastatin Calcium 20 mg HS PO 10/14/24 22:00 Laboratory Results Laboratory Tests 10/14/24 03:58 Chemistry Test 10/14/24 03:58 10/14/24 08:23 Calcium Level 9.1 mg/dL (8.7-10.4) Magnesium Level 2.0 mg/dL (1.6-2.6) Lipid panel Test 10/14/24 05:46 Cholesterol Level 177 mg/dL (< 200) HDL Cholesterol 45 mg/dL (40-59) Triglycerides Level 68 mg/dL (< 150) Cardiac Markers Test 10/14/24 03:58 B-Type Natriuretic Peptide 66.22 pg/mL (0-100) HgA1c, TSH Test 10/14/24 03:58 10/14/24 05:46 Hemoglobin A1c 5.4 % A1C (<5.7) Thyroid Stimulating Hormone (TSH) 1.29 uIU/mL (0.55-4.78) 0.90 uIU/mL (0.55-4.78) Urinalysis Test 10/14/24 09:00 Urine Color Colorless (Yellow) Urine Clarity Clear (Clear) Urine pH 6.5 (5.0-9.0) Urine Specific [place] 1.006 (1.001-1.035) Urine Protein Negative (Negative) Urine Ketones Negative (Negative) Urine Blood Negative /uL (Negative) Urine Nitrite Negative (Negative) Urine Bilirubin Negative (Negative) Urine Urobilinogen Normal mg/dL (Negative) Urine Leukocyte Esterase Negative /uL (Negative) Urine RBC <1 /hpf (0 - 4) Urine Microscopic WBC < 1 /HPF (0-5) Urine Squamous Epithelial Cells Few /hpf (<5) Urine Bacteria None seen /hpf (None Seen) Urine Glucose Normal mg/dL (Normal) Labs and/or images reviewed: Labs reviewed by me, Image(s) reviewed by me Assessment/Plan Assessment/Plan A 59-year-old male patient; with multiple comorbidities; who presented to emergency department with chest discomfort with palpitations. #Acute chest pain syndrome with palpitations in the setting of bradycardia; to rule out ACS #Hypertensive kidney disease in the setting of essential hypertension #NSTEMI, type II secondary to above #Dyslipidemia #Hypothyroidism secondary to total thyroidectomy for thyroid cancer #Obesity Telemetry Cardiology is following Continue antihypertensive medication and adjust according to blood pressure measurements Restarted home levothyroxine 88 mcg daily; normal TSH and free T4 Continue aspirin and statin Reviewed available EKGs Avoid nephrotoxic agents Reviewed lab work and imaging study Echocardiogram was done but results are pending Continue pain management as indicated Counseled the patient about the importance of adopting healthy lifestyle with diet and exercise in order to lose weight Continue monitoring Goals of care discussed with the patient for 20 minutes; full code Late Entry. This medical document was created using an electronic medical record system with computerized dictation system. Although this document has been carefully reviewed, there might still be some phonetic and typographical errors. These areas are purely typographical due to imperfections of the software programs, and do not reflect any compromise in the patient's medical care. Plan discussed with: Patient, Other (Nurse) Date of Service: Oct 14, 2024 Billing Provider: WONG DE LA CRUZ MD Common Visit Codes: [id number] INP/OBS CARE(HIGH) Secondary Visit Codes: 10794-[id number] CARE PLAN 30 MINUTES (20 minutes) WONG DE LA CRUZ MD Oct 14, 2024 11:28
[2024-10-14] MEDS: ATORVASTATIN 20 MG TAB PO SCH (22:02)
[2024-10-15] VITALS (8 sets, daily range): BP systolic 100–119; BP diastolic 46–72; PULSE 46–65; RESP 14–18; TEMP 97.3–98; O2SAT 95–99
[2024-10-15] MEDS: ACETAMINOPHEN 325 MG TAB PO PRN (05:07)
[2024-10-15] MEDS: LEVOTHYROXINE SODIUM 88 MCG TAB PO SCH (05:07)
[2024-10-15 06:24] LABS: Hematocrit 39.2 % (36.0-46.0); Hemoglobin 13.4 g/dL (12.2-16.2); Mean Corpuscular Hemoglobin 30.8 pg (28.0-32.0); Mean Corpuscular Volume 90.1 fL (80.0-100.0); Nucleated Red Blood Cells % 0.1 %
[2024-10-15 06:40] LABS: Alanine Aminotransferase 13 U/L (7-40); Albumin 4.2 g/dL (3.2-4.8); Alkaline Phosphatase 50 U/L (46-116); Anion Gap 8 (5-15); BUN/Creatinine Ratio 12.9 (10.0-20.0); Bilirubin, Total 0.6 mg/dL (0.2-1.0); Blood Urea Nitrogen 11 mg/dL (9-23); Calcium 9.6 mg/dL (8.7-10.4); Carbon Dioxide 27 mmol/L (20-31); Chloride 105 mmol/L (98-107); Glucose 96 mg/dL (74-106); Potassium 3.8 mmol/L (3.5-5.1); Sodium 140 mmol/L (136-145); Total Protein 6.6 g/dL (5.7-8.2)
--- NOTE | 2024-10-15 09:53 | DVHPN2 ---
Consult Progress Note Date Seen: Oct 15, 2024 Subjective Review of Systems: CVS:Normal, RESPIRATORY:Abnormal, NEURO:Normal Other Systems: SOB with ambulation this morning. Asymptomatic at time of assessment Objective vital signs Vital Sign Date Time Temp Pulse Resp B/P (MAP) Pulse Ox O2 Delivery O2 Flow Rate FiO2 10/15/24 08:53 106/68 10/15/24 08:00 50 14 98 Room Air* 0 21 10/15/24 05:07 97.8 Total Intake and Output 10/14/24 10/14/24 10/15/24 15:00 23:00 07:00 Intake Total 240 ml 470 ml Balance 240 ml 470 ml medications Current Medications Medications Dose Ordered Sig/Ngozi Route Start Time Stop Time Status Last Admin Dose Admin Ondansetron HCl 4 mg Q4HP PRN IV 10/14/24 08:15 Acetaminophen 650 mg Q6HP PRN PO 10/14/24 08:15 10/15/24 05:07 650 MG Nitroglycerin 0.4 mg Q5MINP PRN SL 10/14/24 08:15 Morphine Sulfate 2 mg Q30M PRN IV 10/14/24 08:15 Lisinopril 10 mg DAILY PO 10/14/24 10:00 Atorvastatin Calcium 20 mg HS PO 10/14/24 22:00 10/14/24 22:02 20 MG Levothyroxine Sodium 88 mcg QAM@0600 PO 10/15/24 06:00 10/15/24 05:07 88 MCG Aspirin 81 mg DAILY PO 10/15/24 10:00 10/15/24 08:53 81 MG Examination: LUNGS:Normal, CVS:Normal, NEURO:Normal laboratory and microbiology Laboratory Tests 10/15/24 05:05 Test 10/15/24 05:05 Range/Units Serum Glucose 96 74-106 mg/dL Problem List/Assessment/Plan Problem List/Assessment/Plan Palpitations rule out cardiac arrhythmias Rule out structural heart disease Hypertensive urgency NSTEMI, type II secondary to above Dyslipidemia Thyroid cancer status post total thyroidectomy Obesity Plan/Recommendation (Dr. Mccallum) Transthoracic echocardiogram to evaluate cardiac function, preliminary revealed optimal LV function. residential monitor reviewed showing sinus bradycardia events at rest. No tachyarrhythmias or high burden ectopi identified. Continue aggressive blood pressure control and lipid-lowering agent. Replete electrolytes as necessary. Recommend an outpatient event monitor. In the setting of an unremarkable echocardiogram there is no further cardiac work-up indicated at this time. Thank you for allowing us to care for this patient. Please call with any questions or concerns. This medical document was created using an electronic medical record system with voice recognition software and computerized dictation system. Although this document has been carefully reviewed, there might still be some phonetic and typographical errors. Occasional wrong-word or ``sound-alike substitutions may have occurred due to the inherent limitations of voice recognition software. These areas are purely typographical due to imperfections of the software programs and do not reflect any compromise in the patient's medical care. Please read the chart carefully and recognize, using context, where these substitutions have occurred. Plan discussed with: Patient, Other Date of Service: Oct 15, 2024 Billing Provider: CRUZITO CHOWDARY Cardiology Common Codes: [id number] HOSP CARE(High CRUZITO CHOWDARY Oct 15, 2024 09:53
--- NOTE | 2024-10-15 11:04 | DVHPN2 ---
Subjective No chest discomfort and no palpitations but SOB sometimes Reviewed: Care Plan, H&P, Labs, Medications, Previous Orders, Radiology, Other (Consultations) Changes from previous H/P or p: Changes Cardiovascular: Palpitations Objective Vitals Vital Signs Date Time Temp Pulse Resp B/P (MAP) Pulse Ox O2 Delivery O2 Flow Rate FiO2 10/15/24 09:00 97.5 50 14 108/58 (75) 98 97.5 10/15/24 08:00 Room Air* 0 21 Intake/Output Intake and Output 10/15/24 07:00 Intake Total 710 ml Balance 710 ml Intake Oral 710 ml # Voids 2 General Appearance: Alert, Oriented X3, Cooperative, No acute distress HEENT: Atraumatic Lungs: Clear to auscultation, Normal air movement Cardiovascular: Normal S1, Normal S2, Other (Bradycardic) Abdomen: Normal bowel sounds, Soft, No tenderness Extremities: No edema Neuro: Normal speech, Cranial nerves 3-12 NL Psych/Mental Status: Mental status NL, Mood NL Medications Current Medications Medications Dose Ordered Sig/Ngozi Route Start Time Stop Time Status Last Admin Dose Admin Ondansetron HCl 4 mg Q4HP PRN IV 10/14/24 08:15 Acetaminophen 650 mg Q6HP PRN PO 10/14/24 08:15 10/15/24 05:07 650 MG Nitroglycerin 0.4 mg Q5MINP PRN SL 10/14/24 08:15 Morphine Sulfate 2 mg Q30M PRN IV 10/14/24 08:15 Lisinopril 10 mg DAILY PO 10/14/24 10:00 Atorvastatin Calcium 20 mg HS PO 10/14/24 22:00 10/14/24 22:02 20 MG Levothyroxine Sodium 88 mcg QAM@0600 PO 10/15/24 06:00 10/15/24 05:07 88 MCG Aspirin 81 mg DAILY PO 10/15/24 10:00 10/15/24 08:53 81 MG Laboratory Results Laboratory Tests 10/15/24 05:05 Chemistry Test 10/15/24 05:05 Albumin 4.2 g/dL (3.2-4.8) Calcium Level 9.6 mg/dL (8.7-10.4) Total Protein 6.6 g/dL (5.7-8.2) Coagulation Test 10/14/24 11:36 D-Dimer, Quantitative 0.29 mg/L FEU (0.0-0.49) LFT Test 10/15/24 05:05 Alanine Aminotransferase (ALT) 13 U/L (7-40) Alkaline Phosphatase 50 U/L (46-116) Aspartate Amino Transferase (AST) 18 U/L (13-40) Total Bilirubin 0.6 mg/dL (0.2-1.0) Urinalysis Test 10/14/24 09:00 Urine Color Colorless (Yellow) Urine Clarity Clear (Clear) Urine pH 6.5 (5.0-9.0) Urine Specific [place] 1.006 (1.001-1.035) Urine Protein Negative (Negative) Urine Ketones Negative (Negative) Urine Blood Negative /uL (Negative) Urine Nitrite Negative (Negative) Urine Bilirubin Negative (Negative) Urine Urobilinogen Normal mg/dL (Negative) Urine Leukocyte Esterase Negative /uL (Negative) Urine RBC <1 /hpf (0 - 4) Urine Microscopic WBC < 1 /HPF (0-5) Urine Squamous Epithelial Cells Few /hpf (<5) Urine Bacteria None seen /hpf (None Seen) Urine Glucose Normal mg/dL (Normal) Labs and/or images reviewed: Labs reviewed by me, Image(s) reviewed by me Assessment/Plan Assessment/Plan A 59-year-old male patient; with multiple comorbidities; who presented to emergency department with chest discomfort with palpitations. #Acute chest pain syndrome with palpitations in the setting of sinus bradycardia; ACS ruled out as per cardiology #Hypertensive kidney disease in the setting of essential hypertension #NSTEMI, type II secondary to above #Dyslipidemia #Hypothyroidism secondary to total thyroidectomy for thyroid cancer #Obesity Telemetry Cardiology is following Continue antihypertensive medication and adjust according to blood pressure measurements Continue home levothyroxine 88 mcg daily; normal TSH and free T4 Continue aspirin and statin Reviewed available EKGs Avoid nephrotoxic agents Reviewed lab work and imaging study Echocardiogram was done but results are pending Continue pain management as indicated Counseled the patient about the importance of adopting healthy lifestyle with diet and exercise in order to lose weight Continue monitoring Planned discharge tomorrow. Late Entry. This medical document was created using an electronic medical record system with computerized dictation system. Although this document has been carefully reviewed, there might still be some phonetic and typographical errors. These areas are purely typographical due to imperfections of the software programs, and do not reflect any compromise in the patient's medical care. Plan discussed with: Patient, Other (Nurse) My Orders Orders - WONG DE LA CRUZ MD Procedure Category Date Status Time Levothyroxine Tablet PHA 10/15/24 In Process (Synthroid Tablet) 06:00 Aspirin Tablet PHA 10/15/24 In Process 10:00 Date of Service: Oct 15, 2024 Billing Provider: WONG DE LA CRUZ MD Common Visit Codes: [id number] INP/OBS CARE(HIGH) WONG DE LA CRUZ MD Oct 15, 2024 11:04
[2024-10-16 01:00] VITALS: BP 124/73; PULSE 50; RESP 18; TEMP 97.8; O2SAT 97
[2024-10-16 05:00] VITALS: BP 105/55; PULSE 53; RESP 18; TEMP 97.9; O2SAT 95
[2024-10-16 07:15] LABS: Calcium 9.7 mg/dL (8.7-10.4); Chloride 105 mmol/L (98-107); Potassium 3.9 mmol/L (3.5-5.1); Sodium 141 mmol/L (136-145)
[2024-10-16 07:16] LABS: Anion Gap 8 (5-15); Carbon Dioxide 28 mmol/L (20-31)
[2024-10-16 07:21] LABS: Glucose 96 mg/dL (74-106)
[2024-10-16 07:22] LABS: BUN/Creatinine Ratio 16.1 (10.0-20.0); Blood Urea Nitrogen 14 mg/dL (9-23)
[2024-10-16 08:00] VITALS: PULSE 48; RESP 16; O2SAT 98
[2024-10-16 09:00] VITALS: BP_SYST 101; BP_SYST 114; BP_SYST 127; BP_DIAS 48; BP_DIAS 59; BP_DIAS 67; PULSE 45; PULSE 50; RESP 20; TEMP 98.2; O2SAT 58; O2SAT 99
--- NOTE | 2024-10-16 11:17 | DVHPN2 ---
Subjective Feeling much better this morning with no complaint Reviewed: Care Plan, H&P, Labs, Medications, Previous Orders, Radiology, Other (Consultations) Changes from previous H/P or p: Changes Objective Vitals Vital Signs Date Time Temp Pulse Resp B/P (MAP) Pulse Ox O2 Delivery O2 Flow Rate FiO2 10/16/24 09:42 101/48 10/16/24 09:00 50 10/16/24 09:00 98.2 20 99 98.2 10/15/24 20:00 Room Air* 0 21 Intake/Output Intake and Output 10/16/24 07:00 Intake Total 1280 ml Balance 1280 ml Intake Oral 1280 ml # Voids 3 General Appearance: Alert, Oriented X3, Cooperative, No acute distress HEENT: Atraumatic Lungs: Clear to auscultation, Normal air movement Cardiovascular: Normal S1, Normal S2, Other (Bradycardic) Abdomen: Normal bowel sounds, Soft, No tenderness Extremities: No edema Neuro: Normal speech, Cranial nerves 3-12 NL Psych/Mental Status: Mental status NL, Mood NL Medications Current Medications Medications Dose Ordered Sig/Ngozi Route Start Time Stop Time Status Last Admin Dose Admin Ondansetron HCl 4 mg Q4HP PRN IV 10/14/24 08:15 Acetaminophen 650 mg Q6HP PRN PO 10/14/24 08:15 10/16/24 07:54 650 MG Nitroglycerin 0.4 mg Q5MINP PRN SL 10/14/24 08:15 Morphine Sulfate 2 mg Q30M PRN IV 10/14/24 08:15 Lisinopril 10 mg DAILY PO 10/14/24 10:00 Atorvastatin Calcium 20 mg HS PO 10/14/24 22:00 10/15/24 20:40 20 MG Levothyroxine Sodium 88 mcg QAM@0600 PO 10/15/24 06:00 10/16/24 06:21 88 MCG Aspirin 81 mg DAILY PO 10/15/24 10:00 10/16/24 09:42 81 MG Laboratory Results Laboratory Tests 10/15/24 05:05 10/16/24 05:24 Chemistry Test 10/16/24 05:24 Calcium Level 9.7 mg/dL (8.7-10.4) Urinalysis Test 10/14/24 09:00 Urine Color Colorless (Yellow) Urine Clarity Clear (Clear) Urine pH 6.5 (5.0-9.0) Urine Specific [place] 1.006 (1.001-1.035) Urine Protein Negative (Negative) Urine Ketones Negative (Negative) Urine Blood Negative /uL (Negative) Urine Nitrite Negative (Negative) Urine Bilirubin Negative (Negative) Urine Urobilinogen Normal mg/dL (Negative) Urine Leukocyte Esterase Negative /uL (Negative) Urine RBC <1 /hpf (0 - 4) Urine Microscopic WBC < 1 /HPF (0-5) Urine Squamous Epithelial Cells Few /hpf (<5) Urine Bacteria None seen /hpf (None Seen) Urine Glucose Normal mg/dL (Normal) Labs and/or images reviewed: Labs reviewed by me, Image(s) reviewed by me Assessment/Plan Assessment/Plan A 59-year-old female patient; with multiple comorbidities; who presented to emergency department with chest discomfort with palpitations. #Acute chest pain syndrome with palpitations in the setting of sinus bradycardia; ACS ruled out as per cardiology; cleared by Cardiology for discharge #Hypertensive kidney disease in the setting of essential hypertension; controlled #NSTEMI, type II secondary to above #Dyslipidemia #Hypothyroidism secondary to total thyroidectomy for thyroid cancer #Obesity Telemetry as inpatient; no ischemic changes on EKGs; negative troponin Cardiology followed the patient's; will need event monitor as outpatient; to be referred by her primary care provider Continue home blood pressure medications on discharge; to follow up with her primary care provider Continue home levothyroxine 88 mcg daily; normal TSH and free T4 during admission; Continue home statin upon discharge; no need for aspirin on discharge Normal echocardiogram as per Cardiology note but no official read for the echocardiogram Counseled the patient about the importance of adopting healthy lifestyle with diet and exercise in order to lose weight To be discharged home Late Entry. This medical document was created using an electronic medical record system with computerized dictation system. Although this document has been carefully reviewed, there might still be some phonetic and typographical errors. These areas are purely typographical due to imperfections of the software programs, and do not reflect any compromise in the patient's medical care. Plan discussed with: Patient, Other (Nurse) Date of Service: Oct 16, 2024 Billing Provider: WONG DE LA CRUZ MD Common Visit Codes: [id number] INP/OBS CARE(MOD) WONG DE LA CRUZ MD Oct 16, 2024 11:17
--- NOTE | 2024-10-16 11:34 | DVHDS2 ---
Discharge Summary Date of Admission Oct 14, 2024 at 08:01 Date of Discharge: Oct 16, 2024 Admitting Diagnosis Palpitations with chest discomfort/pain Labs/Diagnostic Data: Laboratory Results Test 10/16/24 05:24 10/15/24 05:05 10/14/24 11:36 10/14/24 09:00 Sodium Level 141 mmol/L (136-145) Potassium Level 3.9 mmol/L (3.5-5.1) Chloride Level 105 mmol/L (98-107) Carbon Dioxide Level 28 mmol/L (20-31) Anion Gap 8 (5-15) Blood Urea Nitrogen 14 mg/dL (9-23) Creatinine 0.87 mg/dL (0.550-1.02) Glomerular Filtration Rate Calc 76 mL/min (>90) BUN/Creatinine Ratio 16.1 (10.0-20.0) Serum Glucose 96 mg/dL (74-106) Calcium Level 9.7 mg/dL (8.7-10.4) White Blood Count 4.1 10^3/uL (4.4-10.8) Red Blood Count 4.36 10^6/uL (4.0-5.20) Hemoglobin 13.4 g/dL (12.2-16.2) Hematocrit 39.2 % (36.0-46.0) Mean Corpuscular Volume 90.1 fL (80.0-100.0) Mean Corpuscular Hemoglobin 30.8 pg (28.0-32.0) Mean Corpuscular Hemoglobin Concent 34.2 g/dL (32.0-36.0) Red Cell Distribution Width 13.4 % (11.8-14.3) Platelet Count 256 10^3/uL (140-450) Mean Platelet Volume 8.0 fL (6.9-10.8) Neutrophils (%) (Auto) 55.3 % (37.0-80.0) Lymphocytes (%) (Auto) 33.9 % (10.0-50.0) Monocytes (%) (Auto) 8.1 % (0.0-12.0) Eosinophils (%) (Auto) 2.4 % (0.0-7.0) Basophils (%) (Auto) 0.3 % (0.0-2.0) Neutrophils # (Auto) 2.2 10 ^3/uL (1.6-8.6) Lymphocytes # (Auto) 1.4 10 ^3/uL (0.4-5.4) Monocytes # (Auto) 0.3 10 ^3/uL (0-1.3) Eosinophils # (Auto) 0.1 10 ^3/uL (0-0.8) Basophils # (Auto) 0 10 ^3/uL (0-0.2) Nucleated Red Blood Cells 0.1 % Total Bilirubin 0.6 mg/dL (0.2-1.0) Aspartate Amino Transferase (AST) 18 U/L (13-40) Alanine Aminotransferase (ALT) 13 U/L (7-40) Alkaline Phosphatase 50 U/L (46-116) Total Protein 6.6 g/dL (5.7-8.2) Albumin 4.2 g/dL (3.2-4.8) D-Dimer, Quantitative 0.29 mg/L FEU (0.0-0.49) Urine Color Colorless (Yellow) Urine Clarity Clear (Clear) Urine pH 6.5 (5.0-9.0) Urine Specific [place] 1.006 (1.001-1.035) Urine Protein Negative (Negative) Urine Ketones Negative (Negative) Urine Blood Negative /uL (Negative) Urine Nitrite Negative (Negative) Urine Bilirubin Negative (Negative) Urine Urobilinogen Normal mg/dL (Negative) Urine Leukocyte Esterase Negative /uL (Negative) Urine RBC <1 /hpf (0 - 4) Urine Microscopic WBC < 1 /HPF (0-5) Urine Squamous Epithelial Cells Few /hpf (<5) Urine Bacteria None seen /hpf (None Seen) Urine Glucose Normal mg/dL (Normal) Urine Opiates Screen Neg (NEGATIVE) Urine Fentanyl Screen Neg (NEGATIVE) Urine Barbiturates Screen Neg (NEGATIVE) Urine Phencyclidine Screen Neg (NEGATIVE) Urine Amphetamines Screen Neg (NEGATIVE) Urine Benzodiazepines Screen Neg (NEGATIVE) Urine Cocaine Screen Neg (NEGATIVE) Urine Cannabinoids Screen Neg (NEGATIVE) Test 10/14/24 08:23 10/14/24 05:46 10/14/24 03:58 Magnesium Level 2.0 mg/dL (1.6-2.6) Troponin I High Sensitivity 50 ng/L (</=34) Triglycerides Level 68 mg/dL (< 150) Cholesterol Level 177 mg/dL (< 200) LDL Cholesterol 127 mg/dL (< 100) HDL Cholesterol 45 mg/dL (40-59) Thyroid Stimulating Hormone (TSH) 0.90 uIU/mL (0.55-4.78) Free Thyroxine (T4) Calculated 1.44 ng/dL (0.89-1.76) Hemoglobin A1c 5.4 % A1C (<5.7) B-Type Natriuretic Peptide 66.22 pg/mL (0-100) Other Laboratory Tests 10/16/24 05:24 10/15/24 05:05 Brief Hx & Hospital Course: A 59-year-old female patient; with multiple comorbidities; who presented to emergency department with chest discomfort with palpitations. #Acute chest pain syndrome with palpitations in the setting of sinus bradycardia; ACS ruled out as per cardiology; cleared by Cardiology for discharge #Hypertensive kidney disease in the setting of essential hypertension; controlled #NSTEMI, type II secondary to above #Dyslipidemia #Hypothyroidism secondary to total thyroidectomy for thyroid cancer #Obesity Telemetry as inpatient; no ischemic changes on EKGs; negative troponin Cardiology followed the patient's; will need event monitor as outpatient; to be referred by her primary care provider Continue home blood pressure medications on discharge; to follow up with her primary care provider Continue home levothyroxine 88 mcg daily; normal TSH and free T4 during admission; Continue home statin upon discharge; no need for aspirin on discharge Normal echocardiogram as per Cardiology note but no official read for the echocardiogram Counseled the patient about the importance of adopting healthy lifestyle with diet and exercise in order to lose weight To be discharged home Late Entry. This medical document was created using an electronic medical record system with computerized dictation system. Although this document has been carefully reviewed, there might still be some phonetic and typographical errors. These areas are purely typographical due to imperfections of the software programs, and do not reflect any compromise in the patient's medical care. Consults/Reason for consult Cardiology for chest discomfort with palpations Condition at Discharge: Stable Final Diagnosis/Problems List Chest Discomfort/Palpitations due to sinus bradycardia; ACS ruled out Rest of diagnoses as above Discharge Disposition: Home Discharge Instruct/Medications Diet: Cardiac 2g Na,low cholest Activity: No Restrictions, As Tolerated Follow Up/Referral: Discharge clinic with Dr. De La Cruz and Dr. Lorenzo on Friday October 18, 2024 at 2:00 p.m.; PCP within 2 weeks; cardiology for outpatient event monitor within 2 weeks Medications: As per EMR Scheduled Atorvastatin Calcium (Atorvastatin Calcium), 10 MG PO HS Dicyclomine Hcl (Dicyclomine Hcl), 1 TAB PO QID, (Reported) Levothyroxine Sodium (Levothyroxine Sodium), 1 TAB PO DAILY, (Reported) Lisinopril (Lisinopril), 10 MG PO DAILY, (Reported) Discharge Statement: "Patient was advised to return to the ER or call 911 if any headaches, dizziness, shortness of breath, chest pain, abdominal pain, bleeding, fevers, or worsening of medical condition. Patient was counseled about treatment plan, medications, possible side effects, patientverbalized understanding. All questions were answered to the best of my ability. This discharge took greater then 30 minutes in planning, reviewing documentation, counseling the patient, and discussing with other team members." ASSESSMENT ASSESSMENT Assessment Chest Discomfort/Palpitations due to sinus bradycardia; ACS ruled out Date of Service: Oct 16, 2024 Billing Provider: WONG DE LA CRUZ MD Common Visit Codes: [id number] DISCH DAY >30min WONG DE LA CRUZ MD Oct 16, 2024 11:34
[2024-10-16 12:31] VITALS: BP 101/48
[2024-10-16 13:00] VITALS: BP 115/53; PULSE 51; RESP 20; TEMP 97.1; O2SAT 94
[2024-10-16] MEDS ORDERED: ATOR20TA50 PO (14:26)
--- NOTE | 2024-10-16 16:17 | DVHSR ---
APPROVED REPORT EXAM: Two-dimensional and M-mode echocardiogram with Doppler and color Doppler. Blood Pressure: 128/68 mmHg INDICATION Palpitations RISK FACTORS Height: 63, Weight: 189 DIMENSIONS LVDd4.4 (3.8-5.7cm)LA (2D)3.9 (1.9-4.0cm)Aortic Root3.4 (2.0-3.7cm) LVDs3.0 (2.5-4.0cm)LA (MM) (1.9-4.0cm)Aortic Cusp Exc1.8 (1.5-2.0cm) EF (%) 61.0 (55-70%)Rt. Atrium (1.9-4.0cm)Asc. Aorta cm Mitral Valve MitralMitral Stenosis E wave0.67m/sMV Mean GR.mmHg A wave0.59m/sMV Peak GR.mmHg E/A ratio1.12D MVAcm2 DECEL [id number] 1/2 Timems Aortic Valve Aortic ValveAortic Stenosis V11.24m/Jude Mean GR.3mmHg V21.22m/Jude Peak GR.6mmHg LVOT Diameter1.9 (1.8-2.4cm)Doppler AVA2.88cm2 Pulmonic Valve V20.84m/s Tricuspid Valve TR Velocity2.28m/s [id number] Other Information Quality : Technically LimitedRhythm : Technically limited study due to body habitus and patient position. Conclusion LVEF 55-60%, mild LVh. Mild diastolic dysfunction Right ventricle size and function is normal No significant valve disease
== END 2024-10-16 14:40 | disposition home or self-care (01) | DRG 201 ==
LOC: ER 03:34 → OVERFLOW 08:01 → TELE-EAST 16:18
PROVIDERS: ADMIT Internal Medicine; ATTEND Internal Medicine
DX: R00.1 Bradycardia, unspecified (principal); I21.A1 Myocardial infarction type 2; E66.9 Obesity, unspecified; N18.9 Chronic kidney disease, unspecified; Z68.33 Body mass index [BMI] 33.0-33.9, adult; I12.9 Hypertensive chronic kidney disease with stage 1 through stage 4 chronic kidney disease, or unspecified chronic kidney disease; E89.0 Postprocedural hypothyroidism; I16.0 Hypertensive urgency; E78.5 Hyperlipidemia, unspecified; Z85.850 Personal history of malignant neoplasm of thyroid; Z83.3 Family history of diabetes mellitus
CPT/HCPCS: 36415; 71045; 80048; 80053; 80061; 80307; 81001; 83036; 83735; 83880; 84439; 84443; 84484; 85025; 85379; 93005; 93306; G0378